=== PATIENT | female | born 1930 | race Caucasian/White ===

== ENCOUNTER 2016-12-25 18:59 | Emergency (ER) | payer MEDICARE, OTHER ==
[~2016-12-25 18:59] MED LIST: ANTIDEPRESSANT; ASAB PO; ATEN25 PO; CARDU2 PO; COREG6 PO; COUMADIN4 MG PO; CRESTOR10 PO; ELLIPTA INH; FISH-EPA1000 MG PO; INHALERS INH; JANTOVEN4 MG PO; KLOR-CON 1010 MEQ PO; KLOR-CON M1010 MEQ PO; KLOR-CON PO; L40 PO; LANSOPRAZOLE PO; LEVOTHROID88 MCG PO; LEVOTHYROXIN75 MCG PO; LEXAPRO10 PO; LISINOPRIL40 MG PO; LORT7 PO; MAXIMUM D3 PO; MICRO-K10 MEQ PO; MOBIC7.5 PO; NEUR300 PO; NORV5 PO; OCUVITE PO; OMEPRAZOLE PO; PRAVACHOL40 MG PO; PROBIOTIC PO; PROVENTIL INH; PROVHFA INH; SINGULAIR1 PO; SYN.05 PO; SYN075 PO; ULTRAM50 PO; [UNRECOGNIZED DRUG - OTHER]
[2016-12-25 19:48] LABS: BASOPHILS 0.1 %; BASOPHILS ABSOLUTE 0.02 10/3/uL (0.0-0.16); EOSINOPHILS 0.8 %; EOSINOPHILS ABSOLUTE 0.11 10/3/uL (0.0-0.53); HEMATOCRIT 43.3 % (36.0-48.0); HEMOGLOBIN 14.6 g/dL (12.0-16.0); IMMATURE GRANULOCYTES 0.1 %; IMMATURE GRANULOCYTES ABSOLUTE 0.02 10/3/uL (0.0-0.11); LYMPHOCYTES 13.6 %; LYMPHOCYTES ABSOLUTE 1.82 10/3/uL (0.67-4.30); MEAN CORPUS HGB CONC 33.7 g/dL (32.0-36.0); MEAN CORPUSCULAR VOLUME 88.9 fL (80-100); MEAN PLATELET VOLUME 9.7 fL (9.2-13.0); MONOCYTES 9.6 %; MONOCYTES ABSOLUTE 1.29 10/3/uL (0.21-1.20); NEUTROPHILS 75.8 %; NEUTROPHILS ABSOLUTE 10.16 10/3/uL (2.02-8.40); PLATELET COUNT 195 10/3/uL (150-400); RBC DISTRIBUTION WIDTH 14.8 % (12.0-16.0); RED CELL COUNT 4.87 10/6/uL (4.0-5.6)
[2016-12-25 19:49] LABS: MANUAL DIFF NO %; WHITE BLOOD CELLS 13.4 10/3/uL (4.5-10.5)
[2016-12-25] MEDS ORDERED: COREG6 PO (19:49)
[2016-12-25] MEDS ORDERED: LEVOTHYROXIN88 MCG PO (19:49)
[2016-12-25] MEDS ORDERED: INCRUSE ELLI62.5 MCG INH (19:49)
[2016-12-25] MEDS ORDERED: PROBIOTIC GUMMY PO (19:49)
[2016-12-25] MEDS ORDERED: SALONPAS-HOT TOP (19:50)
[2016-12-25] MEDS ORDERED: PROTONIX PO (19:50)
[2016-12-25] MEDS ORDERED: SINGULAIR1 PO (19:50)
[2016-12-25] MEDS ORDERED: NORV5 PO (19:50)
[2016-12-25] MEDS ORDERED: L40 PO (19:50)
[2016-12-25] MEDS ORDERED: LEXAPRO20 PO (19:51)
[2016-12-25] MEDS ORDERED: ASPERCREME TOP (19:51)
[2016-12-25] MEDS ORDERED: PRAVACHOL40 MG PO (19:51)
[2016-12-25] MEDS ORDERED: JANTOVEN4 MG PO (19:51)
[2016-12-25] MEDS ORDERED: FLONASE NAS (19:52)
[2016-12-25] MEDS ORDERED: ULTRAM50 PO (19:52)
[2016-12-25] MEDS ORDERED: VENTOLIN HFA INH (19:52)
[2016-12-25] MEDS ORDERED: NEUR300 PO (19:52)
[2016-12-25 20:04] LABS: ALBUMIN 3.3 G/DL (3.5-5.0); ALKALINE PHOSPHATASE 73 U/L (45-117); BUN (BLOOD UREA NITROGEN) 16 MG/DL (6-23); CALCIUM, SERUM 8.2 MG/DL (8.5-10.4); CHLORIDE, SERUM 106 MMOL/L (96-112); CO2 (CARBON DIOXIDE) 25 MMOL/L (24-34); CREATININE 0.81 MG/DL (0.55-1.02); GFR AFRICAN AMERICAN 76 ML/MIN (>=60); GFR NON AFRICAN AMERICAN 65 ML/MIN (>=60); GLOBULIN 3.4 G/DL (2.5-4.1); GLUCOSE, SERUM 102 MG/DL (60-99); SGOT(AST) 35 U/L (5-40); SGPT(ALT) 24 U/L (5-65); SODIUM, SERUM 142 MMOL/L (135-148); TOTAL BILIRUBIN 1.8 MG/DL (0-1.2); TOTAL PROTEIN 6.7 G/DL (6.0-8.5)
[2016-12-25 20:05] LABS: LACTATE 0.9 MMOL/L (0.3-2.4)
[2017-06-13] MEDS ORDERED: LEXAPRO20 PO (14:52)
[2017-06-13] MEDS ORDERED: KLONO5 PO (14:53)
[2017-06-13] MEDS ORDERED: JANTOVEN4 MG PO (14:53)
[2017-06-16] MEDS ORDERED: ASAB PO (16:50)
[2017-06-16] MEDS ORDERED: MONODOX100 MG PO (16:52)
[2017-06-16] MEDS ORDERED: ALBUTEROL0.083 % INH (16:55)
[2017-06-16] MEDS ORDERED: DULERA 200 MCG/13 GM INH (16:55)
== END 2016-12-25 20:50 | disposition home or self-care (01) ==
LOC: ER 18:59
PROVIDERS: Hospitalist
DX: K57.92 Diverticulitis of intestine, part unspecified, without perforation or abscess without bleeding (principal); I10 Essential (primary) hypertension; J44.9 Chronic obstructive pulmonary disease, unspecified; I48.91 Unspecified atrial fibrillation; Z95.5 Presence of coronary angioplasty implant and graft; Z91.040 Latex allergy status; Z91.041 Radiographic dye allergy status; Z79.899 Other long term (current) drug therapy
CPT/HCPCS: 74176; 80053; 81001; 83605; 83690; 85025; 96374; 96375; 99284; A9270-GY; J2405

== ENCOUNTER 2016-12-28 12:47 | Inpatient (IN) | payer MEDICARE, OTHER ==
--- NOTE | ~2016-12-28 | DS ---
Discharge Summary [facility] [address] [facility] [place]. [address] NAME: MARIBETH ASHRAF : 29 STATUS : DIS IN PAT#: [id number] AGE: 86 ADM/REG DATE : 12/28/16 MR#: [id number] REPORT SERV DATE: 01/01/17 DICTATED BY: BROOKE DICKSON DATE: 01/01/17 REPORT STATUS : Draft TRANSCRIBED BY: MODL DATE: 01/01/17 ADMISSION DATE: 12/28/2016 DISCHARGE DATE: 01/01/2017 DIAGNOSES ON ADMISSION: 1. Nausea, vomiting, and dehydration. 2. Abdominal pain with mild acute diverticulitis. 3. Dehydration secondary to nausea and not eating. 4. Constipation. DIAGNOSES ON DISCHARGE: 1. Acute diverticulitis, improved. Nausea and vomiting, resolved. Appetite improved. 2. Constipation, resolved. 3. Oral thrush, improved. 4. Hypokalemia, resolved. 5. Hypertension, controlled. 6. Moderate malnourishment, improved. CONSULTANTS ON THE CASE: Gastroenterology, nurse practitioner, Lamine, under the supervision of Dr. Resendez. HISTORY OF PRESENT ILLNESS: Briefly, this is a very pleasant 86-year-old female who was admitted by ak on 12/28/2016 with complaints of nausea, vomiting, abdominal pain, dehydration, constipation, and failure to thrive. For the details, see history of present illness dictated by ak on 12/28/2016. HOSPITAL COURSE: Briefly, the patient was admitted to the hospital. She was started on IV fluids and intravenous antibiotics, as well as container coordinator saw this patient and laxatives were given to the patient. She had an x-ray KUB which was unremarkable. The patient responded very well to laxatives and her constipation resolved. Her appetite normalized and she did not have any more abdominal pain, as well as her nausea and vomiting resolved, her oral thrush resolved, and specifically, we gave her nystatin swish and swallow and it helped her tremendously. She had one episode of hypokalemia which was replaced. Now, she is eating better, her potassium normalized. Blood pressure has been controlled as well and she was able to ambulate, and she came back to her baseline. Gastroenterology nurse practitioner recommended the patient to be discharged today and follow up with Dr. Ortez in one to two weeks, as well as she left prescription for Marinol to increase her appetite. Regarding her Coumadin, since it was held on admission, currently, we are restarting her Coumadin and her INR today is 1.6. I had a long discussion with the patient's daughter and I explained to her that Coumadin can interact with Levaquin and her INR can be increased even on the minimal dose of Coumadin, especially in this situation for the last four days, she was on Levaquin and her INR is 1.6. I recommended to take Coumadin 2 mg today and 2 mg tomorrow, and then she needs to check her PT/INR, either from [facility] at [facility] or through Dr. Patricio Juárez. As well as, I recommended to check potassium level per Dr. Ramirez [address] [place]. [address] NAME: MARIBETH ASHRAF : 29 STATUS : DIS IN PAT#: [id number] AGE: 86 ADM/REG DATE : 12/28/16 MR#: [id number] REPORT SERV DATE: 01/01/17 DICTATED BY: BROOKE DICKSON DATE: 01/01/17 REPORT STATUS : Draft TRANSCRIBED BY: MODCayla DATE: 01/01/17 Patricio Juárez next week. I also recommended to hold Lasix for the next five or six days because the patient was dehydrated, and she can restart her Lasix once she starts to drink her normal amount of fluid. Overall, the patient tremendously improved and doing well. She will continue her carvedilol at a dose of 6.25 p.o. b.i.d., Lexapro 20 mg daily, Zantac 150 mg daily, Flonase one spray daily, Neurontin 300 mg a day, Levaquin 750 mg daily for the next five days to complete a full course of antibiotics for diverticulitis, Flagyl 500 mg p.o. t.i.d. for the next five days, levothyroxine 88 mcg daily, Singulair 10 mg a day, Protonix 40 mg a day, Incruse Ellipta one puff daily, tramadol 100 mg after supper, MiraLAX one packet p.o. b.i.d. p.r.n. for constipation, probiotic daily, Norvasc 5 mg a day, capsaicin cream topically daily. Hold Lasix for six days. Pravastatin 40 a day, Aspercreme daily, Coumadin 2 mg p.o. daily for the next two days and check PT/INR on Tuesday. I spent 45 minutes on discharge. I recommended also to follow up with Patricio Juárez next day. Everything was discussed with the patient and her daughter. MG/MODL Brooke Dickson M.D. / [id number] CC: Sera Yancey M.D. Colleen Schmitt, M.D.
--- NOTE | ~2016-12-28 | HP ---
History And Physical [place] [id number] [facility] [place]. [address] NAME: MARIBETH ASHRAF : 29 STATUS : ADM IN [facility]#: [id number] AGE: 86 ADM/REG DATE : 12/28/16 MR#: [id number] REPORT SERV DATE: 12/28/16 DICTATED BY: BROOKE DICKSON DATE: 12/28/16 REPORT STATUS : Draft TRANSCRIBED BY: MODL DATE: 12/28/16 DATE OF ADMISSION: 12/28/2016 The patient is an 86-year-old female who presented to [facility] as a direct transfer requested per Dr. Ortez. The patient was not feeling well since Tuesday and she was constipated for approximately seven days according to the patient's daughter, who is at the bedside. She was having nausea and vomiting as well as abdominal pain. She came on Tuesday to emergency room and she was given antibiotics, Levaquin, and Flagyl as well as antinausea medication because CT scan of the abdomen and pelvis showed diverticulitis, but the patient was unable to tolerate oral antibiotics and antinausea medications because of nausea, not feeling well. She was complaining of pain on her lower abdomen. She has some protrusion on the left lower quadrant looks like hernia, some soft swelling, which is not painful to touch. REVIEW OF SYSTEMS: She denies any chest pain. No shortness of breath. No fever. No rash. No headache. All 14-point review of systems done and negative except what is stated in the history of present illness. PAST MEDICAL HISTORY: Known for history of hypertension, hypercholesterolemia, hypothyroidism, history of coronary artery disease with a history of stent placement in the past. She is chronically on Coumadin for her heart as per the patient's daughter. She also has history of COPD. 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 ALLERGIES: LATEX, ADHESIVE TAPE, AND IODINATED CONTRAST. HOME MEDICATIONS: Albuterol two puffs inhaled every four hours as needed, Norvasc 5 mg a day, capsaicin cream one patch topically daily as needed, Coreg 6.25 p.o. b.i.d., Lexapro 20 mg daily, Flonase one spray daily, furosemide 40 mg a day, Neurontin 300 mg daily, Levaquin 750 daily and levothyroxine 88 mcg a day, Flagyl 500 mg p.o. daily, Singulair 10 mg a day, Protonix 40 mg daily, pravastatin 40 mg daily, ranitidine 150 daily, tramadol 100 mg with supper, Aspercreme daily, Breo Ellipta one puff inhaled daily, probiotic daily, and Jantoven 4 mg a day. SOCIAL HISTORY: She quit smoking 25 to 30 years ago. Used to smoke approximately one pack per day. No excessive use of alcohol. No recreational drug use. She lives with her son. FAMILY HISTORY: Positive for coronary artery disease in her brothers and sisters as well as diabetes. Mother from some type of cancer. Father from emphysema. PHYSICAL EXAMINATION: GENERAL: Thin female very pleasant, not in acute distress. Resting quietly. VITAL SIGNS: Blood pressure 147/67, heart rate 69, temperature 98.2, respiratory rate 16, History And Physical [address] [address] NAME: MARIBETH ASHRAF : 29 STATUS : ADM IN [facility]#: [id number] AGE: 86 ADM/REG DATE : 12/28/16 MR#: [id number] REPORT SERV DATE: 12/28/16 DICTATED BY: BROOKE DICKSON DATE: 12/28/16 REPORT STATUS : Draft TRANSCRIBED BY: CARLY DATE: 12/28/16 oxygen saturation 93% on room air. HEENT: Head atraumatic, normocephalic. Conjunctivae clear. Pupils are equal, reactive to light and accommodation. Extraocular muscles are intact. NECK: Supple. Trachea is midline. No supraclavicular or cervical lymphadenopathy. LUNGS: Diminished breath sounds bilaterally. Decreased respiratory effort. CARDIOVASCULAR SYSTEM: Regular rate and rhythm. Point of maximal impulse not displaced. ABDOMEN: Soft. There is tenderness to palpation in the lower abdomen mostly in the left lower quadrant. There is also some protrusion of the anterior abdominal wall, very soft to palpation, looks like hernia. There is no significant pain on that protrusion in the left lower quadrant. Slightly diminished bowel sounds. There is no guarding or rebound. Benign abdominal examination. EXTREMITIES: No clubbing, cyanosis. No edema. SKIN: Normal color, slightly decreased turgor. PSYCHIATRIC: Normal mood and affect. LABORATORY RESULTS: Currently ordered by me, but still pending. We will follow up on the results once they come back. CT scan on the abdomen and pelvis without contrast done on 12/25/2016 in our emergency room showed local inflammatory changes on the descending colon, sigmoid, question if this represents early diverticulitis. ASSESSMENT AND PLAN: Very pleasant 86-year-old female presented with nausea, vomiting, dehydration, abdominal pain, and with the picture on the CT scan consistent with mild acute diverticulitis as well as having constipation. We are going to admit the patient to the hospital and we are going to continue her on IV fluid hydration. At the same time, we will cover her with intravenous antibiotics, Levaquin, and Flagyl since she cannot take anything by mouth and she is nauseous. Regarding her abnormal CT scan on abdomen and pelvis, which looks like diverticulitis. I am going to continue intravenous antibiotics and also I will order x-ray KUB and consult practice administrator. Regarding nausea, we will give her intravenous antinausea medication. In the same time, I am ordering now CBC, CMP to check her liver enzymes and electrolytes. We will put her on electrolyte protocol. If the electrolytes will be low, they will be replaced. Regarding her history of Coumadin anticoagulation, we check her PT and INR and hold Coumadin for now. An x-ray KUB will be ordered. I will follow up on the lab results and I will see her tomorrow. MG/MODL Brooke History And Physical [address] [address] NAME: MARIBETH ASHRAF : 29 STATUS : ADM IN PAT#: [id number] AGE: 86 ADM/REG DATE : 12/28/16 MR#: [id number] REPORT SERV DATE: 12/28/16 DICTATED BY: BROOKE DICKSON DATE: 12/28/16 REPORT STATUS : Draft TRANSCRIBED BY: MODL DATE: 12/28/16 Sera Dickson / [id number] CC: Sera Yancey M.D. Colleen Schmitt, M.D.
--- NOTE | ~2016-12-28 | CN ---
Consultation Report [facility] [address] [place]. [address] NAME: MARIBETH FIGUEROA : 29 STATUS : ADM IN PAT#: [id number] AGE: 86 ADM/REG DATE : 12/28/16 MR#: [id number] REPORT SERV DATE: 12/28/16 DICTATED BY: LIOR DYSON DATE: 12/28/16 REPORT STATUS : Draft TRANSCRIBED BY: MODCayla DATE: 12/28/16 GI CONSULTATION DATE OF CONSULTATION: 12/28/2016 REASON FOR CONSULTATION: Nausea, anorexia, weight loss, failure to thrive. HISTORY OF PRESENT ILLNESS: Ms. Figueroa is a very pleasant 86-year-old female patient, known to Dr. Marielle Ortez, who presented to [facility] on 12/28 with chief complaint of abdominal pain, nausea, failure to thrive, anorexia, and weight loss. She has a history of what the daughter states is ongoing issues with poor appetite and nausea. She began to have abdominal discomfort on 12/25/2016, prompting emergency room visit. She underwent a CT scan that showed local inflammatory changes in the descending and sigmoid colon with questionable early diverticulitis. The daughter states that she was placed on two different antibiotics that per the daughter's report the patient has been having poor tolerance with. Initially, it was the size of the pills that was difficult for her to get down and the daughter began to crush the pills and put them in applesauce; however, it led to upset stomach as well as gagging. She has significantly decreased her p.o. intake per the daughter's report. She was started on some MiraLax for findings of constipation on imaging also with little to no bowel movement in eight plus days. The patient complains to me of intermittent nausea. She has some left lower quadrant abdominal discomfort as well as a "bulge" from the daughter's report. On abdominal assessment, she has some mild distention of the lower abdomen with some mild discomfort on palpation without rebound or guarding. I have discussed the case with Dr. Ramirez, as well as a long discussion with the patient and the daughter at the bedside. She is being placed on Levaquin and Flagyl now for treatment of her diverticulitis as she has been intolerant of the p.o. antibiotics. We will start her on full liquid diet, begin her on a bowel regimen, re-evaluate in the morning to see how she is feeling and if she is able to tolerate any liquids by mouth as well as having a bowel movement. If not, we will discuss other alternative means of nutrition for a short period of time, the daughter is agreeable. Her last endoscopy with Dr. Ortez was done in 08/2016. This was a small-bowel enteroscopy secondary to complaints of unexplained epigastric abdominal pain and anorexia. 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 She was started on Megace and per the daughter's report, she gained four pounds, but since becoming ill with this abdominal discomfort, she has lost roughly six to eight pounds. PAST MEDICAL HISTORY: Positive for diverticulosis; AVMs; hypertension; elevated cholesterol; coronary artery disease; dysrhythmias, on Coumadin therapy; cardiomegaly; COPD; arthritis; chronic back pain; diverticulosis; diverticulitis; hiatal hernia; colon polyps; appendectomy; cholecystectomy; she has had a history of colitis; hysterectomy; hypothyroidism; anxiety; depression; iron deficiency anemia; rectocele; cystocele; cardiac stenting; abdominoplasty. Consultation Report [address] [place]. [address] NAME: MARIBETH FIGUEROA : 29 STATUS : ADM IN [facility]#: [id number] AGE: 86 ADM/REG DATE : 12/28/16 MR#: [id number] REPORT SERV DATE: 12/28/16 DICTATED BY: LIOR DYSON DATE: 12/28/16 REPORT STATUS : Draft TRANSCRIBED BY: CARLY DATE: 12/28/16 FAMILY HISTORY: Noncontributory from a GI standpoint. SOCIAL HISTORY: She still lives independently with her daughter. She denies alcohol, tobacco, or illicits. ALLERGIES: LISTED TO IV DYE, LATEX, AND ADHESIVES. HOME MEDICATIONS: Ventolin, Norvasc, Salonpas, Coreg, Lexapro, Flonase, Lasix, Neurontin, Levaquin, levothyroxine, Flagyl, Singulair, Protonix, Pravachol, Zantac, Ultram, Aspercreme, Incruse Ellipta, probiotic, and Jantoven. REVIEW OF SYSTEMS: A 10-point review of systems obtained with pertinent positives addressed in the history of present illness. PHYSICAL EXAMINATION: VITAL SIGNS: Temperature is 98.2, pulse 69, respirations 16, blood pressure 147/67. NEURO: Reveals an alert, elderly female, resting in bed with no obvious focal deficits. GENERAL: Cooperative, in no obvious acute distress. She is awake. She is alert. She is oriented x3. Somewhat hard of hearing. HEAD, EARS, EYES, NOSE, AND THROAT: Anicteric. Pupils equal, round, reactive to light and accommodation. Normocephalic and atraumatic. NECK: No JVD. No palpable nodes. LUNGS: Diminished throughout with normal respiratory effort exhibited. CARDIOVASCULAR SYSTEM: Regular rate and rhythm. ABDOMEN: Soft and nondistended. Tender to palpation in left lower quadrant with mild distention. No appreciable hernia. She has a notable lower abdominal scar from abdominoplasty. She has hypoactive bowel sounds. EXTREMITIES: No edema. Normal distal pulses. SKIN: Warm, dry, and intact. ASSESSMENT: 1. Left lower quadrant abdominal pain/diverticulitis. 2. Constipation. 3. Nausea. 4. Anorexia with weight loss. 5. Failure to thrive. PLAN: 1. Continue antibiotic coverage started by hospitalist. 2. Follow up abdominal imaging. 3. Full liquid diet. 4. PPI and H2 inhibitor. Consultation Report [address] [address] NAME: MARIBETH FIGUEROA : 29 STATUS : ADM IN [facility]#: [id number] AGE: 86 ADM/REG DATE : 12/28/16 MR#: [id number] REPORT SERV DATE: 12/28/16 DICTATED BY: LIOR DYSON DATE: 12/28/16 REPORT STATUS : Draft TRANSCRIBED BY: CARLY DATE: 12/28/16 5. P.R.N. antiemetics. 6. Laxatives and stool softeners. 7. We will discuss further based on response to antibiotics and oral intake, if any short- term alternative means of nutrition needed. We will follow. CATHY/CARLY KRYSTA Stein / [id number] CC: Sera Yancey M.D.
[~2016-12-28 12:47] MED LIST changes: +ASPERCREME TOP; +FLONASE NAS; +INCRUSE ELLI62.5 MCG INH; +LEVOTHYROXIN88 MCG PO; +LEXAPRO20 PO; +PROBIOTIC GUMMY PO; +PROTONIX PO; +SALONPAS-HOT TOP; +VENTOLIN HFA INH
[2016-12-28] MEDS ORDERED: ZANTAC 150 PO (13:45)
[2016-12-28] MEDS ORDERED: LEVAQUIN750 MG PO (13:46)
[2016-12-28] MEDS ORDERED: FLAG500TAB PO (13:46)
[2016-12-28 14:02] LABS: BASOPHILS 0.3 %; BASOPHILS ABSOLUTE 0.02 10/3/uL (0.0-0.16); EOSINOPHILS 1.7 %; EOSINOPHILS ABSOLUTE 0.11 10/3/uL (0.0-0.53); HEMATOCRIT 43.3 % (36.0-48.0); HEMOGLOBIN 14.8 g/dL (12.0-16.0); IMMATURE GRANULOCYTES 0.5 %; IMMATURE GRANULOCYTES ABSOLUTE 0.03 10/3/uL (0.0-0.11); LYMPHOCYTES 23.9 %; LYMPHOCYTES ABSOLUTE 1.55 10/3/uL (0.67-4.30); MEAN CORPUS HGB CONC 34.2 g/dL (32.0-36.0); MEAN CORPUSCULAR HEMOGLOB 30.5 pg (26.0-34.0); MEAN CORPUSCULAR VOLUME 89.1 fL (80-100); MONOCYTES 9.3 %; NEUTROPHILS 64.3 %; NEUTROPHILS ABSOLUTE 4.17 10/3/uL (2.02-8.40); PLATELET COUNT 213 10/3/uL (150-400); RBC DISTRIBUTION WIDTH 14.6 % (12.0-16.0); RED CELL COUNT 4.86 10/6/uL (4.0-5.6)
[2016-12-28 14:05] LABS: MANUAL DIFF NO %; WHITE BLOOD CELLS 6.5 10/3/uL (4.5-10.5)
[2016-12-28 14:17] LABS: INTERNATIONAL NORMAL RATI 2.3 UNITS (-)
[2016-12-28 14:18] LABS: PROTIME (NOT ORD) 25.2 SEC (12.0-14.5)
[2016-12-28 14:27] LABS: A/G RATIO 1.3 (0.7-1.9); ALBUMIN 3.3 G/DL (3.5-5.0); ALKALINE PHOSPHATASE 63 U/L (45-117); BUN (BLOOD UREA NITROGEN) 17 MG/DL (6-23); CALCIUM, SERUM 8.8 MG/DL (8.5-10.4); CHLORIDE, SERUM 103 MMOL/L (96-112); CO2 (CARBON DIOXIDE) 31 MMOL/L (24-34); CREATININE 1.07 MG/DL (0.55-1.02); GFR AFRICAN AMERICAN 54 ML/MIN (>=60); GFR NON AFRICAN AMERICAN 47 ML/MIN (>=60); GLOBULIN 2.6 G/DL (2.5-4.1); GLUCOSE, SERUM 88 MG/DL (60-99); POTASSIUM, SERUM 3.6 MMOL/L (3.5-5.3); SGOT(AST) 58 U/L (5-40); SGPT(ALT) 104 U/L (5-65); SODIUM, SERUM 143 MMOL/L (135-148); TOTAL BILIRUBIN 0.8 MG/DL (0-1.2); TOTAL PROTEIN 5.9 G/DL (6.0-8.5)
[2016-12-29 06:19] LABS: BASOPHILS 0.3 %; BASOPHILS ABSOLUTE 0.02 10/3/uL (0.0-0.16); EOSINOPHILS 3.1 %; EOSINOPHILS ABSOLUTE 0.19 10/3/uL (0.0-0.53); HEMATOCRIT 40.2 % (36.0-48.0); HEMOGLOBIN 13.3 g/dL (12.0-16.0); IMMATURE GRANULOCYTES 0.7 %; IMMATURE GRANULOCYTES ABSOLUTE 0.04 10/3/uL (0.0-0.11); LYMPHOCYTES 27.7 %; LYMPHOCYTES ABSOLUTE 1.69 10/3/uL (0.67-4.30); MEAN CORPUS HGB CONC 33.1 g/dL (32.0-36.0); MEAN CORPUSCULAR VOLUME 90.5 fL (80-100); MEAN PLATELET VOLUME 10.3 fL (9.2-13.0); MONOCYTES ABSOLUTE 0.61 10/3/uL (0.21-1.20); NEUTROPHILS 58.2 %; NEUTROPHILS ABSOLUTE 3.56 10/3/uL (2.02-8.40); PLATELET COUNT 201 10/3/uL (150-400); RED CELL COUNT 4.44 10/6/uL (4.0-5.6); WHITE BLOOD CELLS 6.1 10/3/uL (4.5-10.5)
[2016-12-29 06:30] LABS: MANUAL DIFF NO %
[2016-12-29 06:42] LABS: ALBUMIN 2.9 G/DL (3.5-5.0); ALKALINE PHOSPHATASE 66 U/L (45-117); BUN (BLOOD UREA NITROGEN) 15 MG/DL (6-23); CALCIUM, SERUM 8.6 MG/DL (8.5-10.4); CHLORIDE, SERUM 108 MMOL/L (96-112); CO2 (CARBON DIOXIDE) 26 MMOL/L (24-34); CREATININE 1.05 MG/DL (0.55-1.02); DIRECT BILIRUBIN 0.1 MG/DL (0.0-0.4); GFR AFRICAN AMERICAN 55 ML/MIN (>=60); GFR NON AFRICAN AMERICAN 48 ML/MIN (>=60); GLUCOSE, SERUM 91 MG/DL (60-99); INDIRECT BILIRUBIN(NOT ORDER) 0.5 MG/DL (0.1-0.9); POTASSIUM, SERUM 3.6 MMOL/L (3.5-5.3); SGOT(AST) 39 U/L (5-40); SGPT(ALT) 81 U/L (5-65); SODIUM, SERUM 145 MMOL/L (135-148); TOTAL BILIRUBIN 0.6 MG/DL (0-1.2); TOTAL PROTEIN 6.2 G/DL (6.0-8.5)
[2016-12-30 06:35] LABS: BASOPHILS 0.3 %; BASOPHILS ABSOLUTE 0.02 10/3/uL (0.0-0.16); EOSINOPHILS 4.4 %; EOSINOPHILS ABSOLUTE 0.26 10/3/uL (0.0-0.53); HEMATOCRIT 36.9 % (36.0-48.0); HEMOGLOBIN 12.2 g/dL (12.0-16.0); IMMATURE GRANULOCYTES 0.9 %; IMMATURE GRANULOCYTES ABSOLUTE 0.05 10/3/uL (0.0-0.11); LYMPHOCYTES 29.9 %; LYMPHOCYTES ABSOLUTE 1.75 10/3/uL (0.67-4.30); MEAN CORPUS HGB CONC 33.1 g/dL (32.0-36.0); MEAN CORPUSCULAR HEMOGLOB 29.7 pg (26.0-34.0); MEAN CORPUSCULAR VOLUME 89.8 fL (80-100); MEAN PLATELET VOLUME 9.6 fL (9.2-13.0); NEUTROPHILS 52.5 %; NEUTROPHILS ABSOLUTE 3.07 10/3/uL (2.02-8.40); PLATELET COUNT 157 10/3/uL (150-400); RBC DISTRIBUTION WIDTH 14.9 % (12.0-16.0); RED CELL COUNT 4.11 10/6/uL (4.0-5.6); WHITE BLOOD CELLS 5.9 10/3/uL (4.5-10.5)
[2016-12-30 06:46] LABS: MANUAL DIFF NO %
[2016-12-30 06:49] LABS: A/G RATIO 0.9 (0.7-1.9); ALBUMIN 2.7 G/DL (3.5-5.0); ALKALINE PHOSPHATASE 56 U/L (45-117); BUN (BLOOD UREA NITROGEN) 9 MG/DL (6-23); CALCIUM, SERUM 8.3 MG/DL (8.5-10.4); CHLORIDE, SERUM 112 MMOL/L (96-112); CO2 (CARBON DIOXIDE) 23 MMOL/L (24-34); CREATININE 0.84 MG/DL (0.55-1.02); DIRECT BILIRUBIN 0.1 MG/DL (0.0-0.4); GFR AFRICAN AMERICAN 72 ML/MIN (>=60); GFR NON AFRICAN AMERICAN 62 ML/MIN (>=60); GLUCOSE, SERUM 107 MG/DL (60-99); INDIRECT BILIRUBIN(NOT ORDER) 0.4 MG/DL (0.1-0.9); POTASSIUM, SERUM 3.4 MMOL/L (3.5-5.3); SGOT(AST) 28 U/L (5-40); SGPT(ALT) 56 U/L (5-65); SODIUM, SERUM 144 MMOL/L (135-148); TOTAL BILIRUBIN 0.5 MG/DL (0-1.2); TOTAL PROTEIN 5.7 G/DL (6.0-8.5)
[2016-12-30 10:53] LABS: HEPATITIS C ANTIBODY NON-REACTIVE (NON-REACT)
[2016-12-30 10:55] LABS: HEP A ANTIBODY IGM NON-REACTIVE (NON-REACT)
[2016-12-31 05:32] LABS: BUN (BLOOD UREA NITROGEN) 8 MG/DL (6-23); CALCIUM, SERUM 8.5 MG/DL (8.5-10.4); CHLORIDE, SERUM 109 MMOL/L (96-112); CO2 (CARBON DIOXIDE) 26 MMOL/L (24-34); CREATININE 0.84 MG/DL (0.55-1.02); GFR AFRICAN AMERICAN 72 ML/MIN (>=60); GFR NON AFRICAN AMERICAN 62 ML/MIN (>=60); POTASSIUM, SERUM 3.5 MMOL/L (3.5-5.3); SODIUM, SERUM 144 MMOL/L (135-148)
[2016-12-31 05:37] LABS: GLUCOSE, SERUM 79 MG/DL (60-99)
[2017-01-01 01:42] LABS: HCV RNA VIRAL LOAD Not Detected (NOTDET)
[2017-01-01 11:10] LABS: INTERNATIONAL NORMAL RATI 1.6 UNITS (-); PROTIME (NOT ORD) 18.7 SEC (12.0-14.5)
[2017-01-01] MEDS ORDERED: MARI2.5 PO (12:28)
[2017-01-01] MEDS ORDERED: FLORASTOR250 MG PO (12:29)
[2017-01-01] MEDS ORDERED: NYS500UDL PO (12:29)
[2017-01-01] MEDS ORDERED: MIRALAX POWDER1 PKT PO (12:29)
[2017-06-13] MEDS ORDERED: LEXAPRO20 PO (14:52)
[2017-06-13] MEDS ORDERED: JANTOVEN4 MG PO (14:53)
[2017-06-13] MEDS ORDERED: KLONO5 PO (14:53)
[2017-06-16] MEDS ORDERED: ASAB PO (16:50)
[2017-06-16] MEDS ORDERED: MONODOX100 MG PO (16:52)
[2017-06-16] MEDS ORDERED: ALBUTEROL0.083 % INH (16:55)
[2017-06-16] MEDS ORDERED: DULERA 200 MCG/13 GM INH (16:55)
== END 2017-01-01 12:58 | disposition home or self-care (01) | DRG 392 ==
LOC: 5SO 12:47
PROVIDERS: Hospitalist; Nurse Practitioner Family
DX: K57.32 Diverticulitis of large intestine without perforation or abscess without bleeding (principal); E44.0 Moderate protein-calorie malnutrition; B37.0 Candidal stomatitis; I48.91 Unspecified atrial fibrillation; I10 Essential (primary) hypertension; F32.9 Major depressive disorder, single episode, unspecified; R62.7 Adult failure to thrive; E87.6 Hypokalemia; Z91.040 Latex allergy status; Z87.891 Personal history of nicotine dependence; Z82.49 Family history of ischemic heart disease and other diseases of the circulatory system; Z83.3 Family history of diabetes mellitus; Z80.8 Family history of malignant neoplasm of other organs or systems; Z79.899 Other long term (current) drug therapy; Z91.041 Radiographic dye allergy status; E78.00 Pure hypercholesterolemia, unspecified; I25.10 Atherosclerotic heart disease of native coronary artery without angina pectoris; Z79.01 Long term (current) use of anticoagulants; F44.9 Dissociative and conversion disorder, unspecified; K44.9 Diaphragmatic hernia without obstruction or gangrene; Z86.010 Personal history of colon polyps; F41.9 Anxiety disorder, unspecified; Z95.5 Presence of coronary angioplasty implant and graft; K59.00 Constipation, unspecified; Z68.21 Body mass index [BMI] 21.0-21.9, adult
CPT/HCPCS: 74000; 74176; 80048; 80053; 80076; 81001; 82248; 83605; 83690; 83735; 84134; 84443; 85025; 85610; 86709; 86803; 87522; 96374; 96375; 97161-GP; 99284; A9270-GY; C9113; G8978-CK-GP; G8979-CJ-GP; G8980-CJ-GP; J1956; J2405